=== PATIENT | male | born 1990 ===

== ENCOUNTER 2024-05-30 13:07 | Emergency (ER) | payer BC ==
[2024-05-30] MEDS ORDERED: Take Home: predniSONE 20 MG, 4 Tab Pack PO ONE (15:02)
== END 2024-05-30 15:23 | disposition home or self-care (01) ==
LOC: DL.ED 13:07
DX: J06.9 Acute upper respiratory infection, unspecified (principal); B97.89 Other viral agents as the cause of diseases classified elsewhere; K21.9 Gastro-esophageal reflux disease without esophagitis; F17.210 Nicotine dependence, cigarettes, uncomplicated; Z79.899 Other long term (current) drug therapy; Z90.49 Acquired absence of other specified parts of digestive tract
CPT/HCPCS: 87081; 87428-QW; 87430; 99283

== ENCOUNTER 2024-06-26 08:41 | Emergency (ER) | payer BC | END 2024-06-26 09:49 | disposition home or self-care (01) | LOC: DL.ED 08:41 | DX: U07.1 COVID-19 (principal); Z86.16 Personal history of COVID-19; Z90.49 Acquired absence of other specified parts of digestive tract; F17.210 Nicotine dependence, cigarettes, uncomplicated; Z79.899 Other long term (current) drug therapy | CPT/HCPCS: 87428-QW; 99283 ==